=== PATIENT | female | born 1985 | race Caucasian/White ===

== ENCOUNTER 2017-05-24 11:15 | Emergency (ER) | payer BC, MEDICAID ==
[~2017-05-24 11:15] MED LIST: OXYC-360 PO; PEDI1CHW6 CHEW
--- NOTE | 2017-05-24 12:25 | PD ---
HPI Chief Complaint Here for NST and biophysical profile due to diabetes Date Seen: May 24, 2017 Time Seen: 12:15 Travel History International Travel<30 Days: No Contact w/Intl Traveler<30Days: No Known Affected Area: No History of Present Illness HPI Patient is 32-year-old white female at [address] greer for care. She has a history gestational diabetes and is getting routine NST biophysical profile. She is here for those procedures today. She has no other complaints or problems. heart rate tracing is reactive and there are no contractions. Weeks Gestation: 36 Para: 1 : 2 History Obstetric History Obstetric History Gestational diabetes with this and obesity Social History Alcohol Use: No Tobacco Use: No Substance Abuse: No Allergies-Medications (Allergen,Severity, Reaction): Coded Allergies: neomycin (Unverified Allergy, Severe, RASH, 04/26/17) Home Meds Reported Medications Oxycodone/Acetaminophen (Percocet) 5 Mg/325 Mg Tab, 1 - 2 TAB PO Q4HPRN, #50 FOR PAIN 12/14/11 Multivitamins/Folic Ac/Vit C (Flintstones Multivitamin) 1 Tab Chw, 1 TAB CHEW DAILY 11/26/11 Review of Systems General / Constitutional: No: Fever, Weight Gain, Chills, Other Eyes: No: Diploplia, Blurred Vision, Visual changes, Pain, Photophobia HENT: No: Headaches, Vertigo, Lightheadedness Cardiovascular: No: Irregular Rhythm, Chest Pain or Discomfort, Palpitations, Tachycardia, Syncope, Varicosities, Edema, Cyanosis Respiratory: No: Cough, Short of Breath, Other Gastrointestinal: No: Nausea, Vomiting, Diarrhea Genitourinary: No: Decreased Urinary Output, Oliguria Musculoskeletal: No: Limited ROM, Weakness, Cramping, Edema, Pain Skin: No Rash, No Itching, No Dryness, No Lumps, No Change in Pigmentation, No Change in Nails, No Alopecia, No Lesions Neurologic: No: Weakness, Dizziness, Syncope, Focal Abnormalities, Coordination Problem, Headache, Slurred Speech, Seizures Psychiatric: No: Depression, Suicidal Ideations, Homicidal Ideation Endocrine: No: Heat Intolerance, Cold Intolerance, Polydipsia, Polyuria, Other Physical Exam Narrative GENERAL: Well-nourished, obese patient. SKIN: Warm and dry. HEAD: Normocephalic and atraumatic. EYES: No scleral icterus. No injection or drainage. ENT: No nasal drainage noted. Mucous membranes pink. Airway patent. NECK: Supple, trachea midline. No JVD. CARDIOVASCULAR: Regular rate and rhythm without murmurs, gallops, or rubs. RESPIRATORY: Breath sounds equal bilaterally. No accessory muscle use. BREASTS: Bilateral exam showed no masses , no retractions, no nipple discharge. ABDOMEN/GI: Abdomen soft, non-tender, bowel sounds present, no rebound, no guarding Gravid to [36-] weeks size Fundal Height: [-38] Membranes: [intact ] Uterine Contractions: [none-] FHT's: Category: [1-] Baseline: [-133] Reactive: [yes-] Variability: [-mod] Decels: [-none] EXTREMITIES: No cyanosis or edema. BACK: Nontender without obvious deformity. No CVA tenderness. NEUROLOGICAL: Awake and alert. Motor and sensory grossly within normal limits. Five out of 5 muscle strength in all muscle groups. Normal speech. Data Data Orders Orders Us Ob Bpp W Repeat (05/24/17 ) Labs NST is reactive airway OB ED her ultrasound was done by OB diagnostics was 8 of 8 on a biophysical with BRAEDEN of 21. Head in the NST today today gives 10 of 10 for her biophysical profile total score MDM Interpretation(s) Patient is 32-year-old white female at [address] greer for care was sent here basically for NST biophysical. Biophysical score total is 10 of 10 reactive NST here on OB ED. Mother has no problems her baby is active. She will follow-up Dr. greer in the usual fashion and continue routine biophysical's as directed Plan Discharged today to follow-up with Dr. greer as above Diagnosis Diagnosis: Primary Impression: Gestational diabetes mellitus Disposition: DISCHARGE HOME Condition: Stable Rashi Huitron II, MD May 24, 2017 12:25
== END 2017-05-24 12:37 | disposition home or self-care (01) ==
LOC: HOBED 11:15
DX: O24.419 Gestational diabetes mellitus in pregnancy, unspecified control (principal); Z3A.36 36 weeks gestation of pregnancy
CPT/HCPCS: 59025; 76816; 76818

== ENCOUNTER 2017-06-09 05:17 | Inpatient (IN) | payer MEDICAID ==
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
[~2017-06-09] VITALS: Ht 175.3 cm; Wt 150.5 kg
[2017-06-09] VITALS (31 sets, daily range): BP systolic 96–167; BP diastolic 50–94; PULSE 61–91; RESP 14–22; TEMP 97.7–98.4; O2SAT 94–100
[2017-06-09] MEDS ORDERED: CITRIC ACID-SODIUM CITRATE LIQ 30 ML UDC PO SCH (06:15)
[2017-06-09] MEDS ORDERED: ceFAZolin 2 GM PREMIX 50 ML IV SCH (06:15)
[2017-06-09] MEDS ORDERED: LACTATED RINGER'S 1000 ML IV SCH (06:15)
[2017-06-09] MEDS ORDERED: LACTATED RINGER'S 1000 ML IV ONE (06:15)
[2017-06-09 06:44] LABS: BASOPHIL % 0.3 % (0.0-2.0); EOSINOPHIL # 0.2 TH/MM3 (0-0.4); EOSINOPHIL % 2.4 % (0.0-4.0); HEMATOCRIT 39.1 % (35.0-46.0); HEMO FLAGS DIFF FINAL; LYMPH % 12.1 % (9.0-44.0); MEAN CELL VOLUME 83.4 FL (80.0-100.0); MEAN CORPUSCULAR HEMOGLOBIN 28.1 PG (27.0-34.0); MEAN CORPUSCULAR HGB CONC 33.7 % (32.0-36.0); NEUT % 80.2 % (16.0-70.0); PLATELET COUNT 145 TH/MM3 (150-450); RED BLOOD COUNT 4.69 MIL/MM3 (4.00-5.30); RED CELL DISTRIBUTION WIDTH 14.8 % (11.6-17.2); WHITE BLOOD COUNT 8.7 TH/MM3 (4.0-11.0)
[2017-06-09 06:54] LABS: BACTERIA, URINE FEW /hpf; BLOOD, URINE NEG (NEG); COMMENT (UR) CULT NOT INDICATED; CULTURE IF INDICATED CULT NOT INDICATED; GLUCOSE,URINE NEG (NEG); HYALINE CAST, URINE 1 /lpf (RARE); KETONE, URINE NEG (NEG); MUCUS URINE FEW /lpf (OCC); NITRITE,URINE NEG (NEG); SQUAMOUS EPITHELIAL CELL URINE 12 /hpf (0-5); URINE COLOR YELLOW (YELLW/STRAW)
[2017-06-09] MEDS ORDERED: SODIUM CHLORIDE 0.9% FLUSH 5 ML FLUSH IV PRN (08:45)
[2017-06-09] MEDS ORDERED: OXYTOCIN 30 UNITS-500ML PREMIX 500 ML IV ONE (08:45)
[2017-06-09] MEDS ORDERED: ACETAMINOPHEN 1000 MG/100 ML VIAL IV SCH (08:45)
[2017-06-09] MEDS ORDERED: MEASLES, MUMPS, RUBELLA VACCINE 0.5 ML VIAL SQ ONE (08:45)
[2017-06-09] MEDS ORDERED: SODIUM CHLORIDE 0.9% FLUSH 5 ML FLUSH IV SCH (09:00)
[2017-06-09] MEDS ORDERED: ePHEDrine/NS 25 MG/5 ML SYR ONE (09:07)
[2017-06-09] MEDS ORDERED: SIMETHICONE 80 MG CHEWABLE TAB PO PRN (09:15)
[2017-06-09] MEDS ORDERED: KETOROLAC TROMETHAMINE 60 MG/2 ML (IM) VIAL IM PRN ×2 (10:00→16:00)
[2017-06-09] MEDS ORDERED: ONDANSETRON HCL 4 MG/2 ML VIAL IVP PRN (10:00)
[2017-06-09] MEDS ORDERED: PROMETHAZINE INJ 25 MG/ML VIAL IM PRN (12:15)
[2017-06-09] MEDS ORDERED: EPIDURAL-DIPHENHYDRAMINE HCL 50 MG CAP PO PRN (12:30)
[2017-06-09] MEDS ORDERED: EPIDURAL-NALOXONE HCL 0.4 MG/ML AMP IV PUSH PRN (12:30)
[2017-06-09] MEDS ORDERED: EPIDURAL-NO SYSTEMIC NARCOTICS PRN (12:30)
[2017-06-09] MEDS ORDERED: EPIDURAL-DO NOT ADMINISTER ANTICOAGULANTS PRN (12:30)
[2017-06-09] MEDS ORDERED: EPIDURAL-DIPHENHYDRAMINE HCL 50 MG/ML VIAL IV PUSH PRN (12:30)
[2017-06-09] MEDS ORDERED: LACTATED RINGER'S 1000 ML INJ 1,000 ML IV SCH (13:04)
[2017-06-09] MEDS ORDERED: OXYTOCIN 30 UNITS-500ML PREMIX 500 ML IV PRN (18:15)
[2017-06-09] MEDS: ACETAMINOPHEN 1000 MG/100 ML VIAL IV SCH (18:18)
[2017-06-09] MEDS ORDERED: ZOLPIDEM TARTRATE 5 MG TAB PO PRN (21:00)
[2017-06-10 01:34] VITALS: O2SAT 99
[2017-06-10] MEDS: ACETAMINOPHEN 1000 MG/100 ML VIAL IV SCH (02:44)
[2017-06-10 04:10] VITALS: BP 123/80; PULSE 82; RESP 18; TEMP 98.5; O2SAT 100
[2017-06-10 05:52] LABS: AUTOMATED NEUTROPHIL # 5.4 TH/MM3 (1.8-7.7); BASOPHIL % 0.2 % (0.0-2.0); EOSINOPHIL # 0.1 TH/MM3 (0-0.4); EOSINOPHIL % 1.2 % (0.0-4.0); HEMATOCRIT 32.5 % (35.0-46.0); HEMO FLAGS DIFF FINAL; LYMPH % 14.6 % (9.0-44.0); MEAN CELL VOLUME 84.7 FL (80.0-100.0); MEAN CORPUSCULAR HGB CONC 33.1 % (32.0-36.0); MONO % 6.9 % (0.0-8.0); NEUT % 77.1 % (16.0-70.0); PLATELET COUNT 119 TH/MM3 (150-450); RED BLOOD COUNT 3.83 MIL/MM3 (4.00-5.30)
[2017-06-10 06:18] LABS: BICARBONATE 24.3 MEQ/L (21.0-32.0); POTASSIUM 3.7 MEQ/L (3.5-5.1)
[2017-06-10] MEDS: oxyCODONE/ACETAMINOPHEN 5 MG/325 MG TAB PO PRN ×4 (06:21→22:44)
[2017-06-10] MEDS: IBUPROFEN 600 MG TAB PO PRN ×4 (06:21→23:23)
[2017-06-10 08:10] VITALS: BP 130/88; PULSE 82; RESP 18; TEMP 97.9
--- NOTE | 2017-06-10 09:57 | MP ---
cc: [facility] DATE OF SURGERY 06/09/2017 ADMISSION DIAGNOSIS 1. Term 2. Previous 3. Maternal obesity 4. Gestational diabetes 5. Macrosomia POSTOPERATIVE DIAGNOSIS 1. Term 2. Previous 3. Maternal obesity 4. Gestational diabetes 5. Macrosomia 6. Delivered PROCEDURE Repeat low transverse section. ANESTHESIA Spinal SURGEON Corie Vega MD MANAGER USER EXPERIENCE Sandy Tyresepatrice ESTIMATED BLOOD LOSS About 500 cc FLUIDS 1.5 liters Crystalloid OBJECTIVE FINDINGS Following induction of adequate spinal anesthesia, the clear elastic drape was used to elevate the panniculus. She was prepped and draped in the usual sterile fashion. The abdomen was opened through a Pfannenstiel incision using knife to cut down through skin to the fascia. The fascia opened transversely, stripped from the muscles. Rectus muscle split in the midline and the peritoneum opened sharply without incident. The bladder flap was taken down sharply, retracted with a Sarah blade. The lower uterine segment was incised transversely with a knife, extended with blunt dissection, and membranes ruptured revealing clear fluid. The baby was in the LOT position. The vacuum extractor applied to the occiput and used to gently lift the head through the uterine abdominal wound. The mouth was suctioned, the cord clamped and cut and the baby passed to the awaiting team. A viable vigorous male, 's 2,8 and 8. Cord blood collected for typing, placenta manually removed and the uterine cavity cleaned with laps. The uterus was exteriorized and closed in two layers with running suture, first with a running locking stitch of 0-Vicryl and second with a running imbricating stitch of 0-Vicryl. Posterior inspection of the uterus, tubes and ovaries were normal. The uterus placed in the cavity. Irrigation was performed. No bleeding was evident. The bladder flap was closed with a running stitch of 3-0 Vicryl. All laps and retractors were removed. Counts were correct. The anterior peritoneum closed with a running stitch of 2-0 Vicryl. The fascia closed with running locking running stitch of #0 PDS corner to midline and tied, subcu with running 3-0 Vicryl and skin with running subcuticular 3-0 Monocryl. Dermabond applied. Dry gauze applied to shield the skin from moisture. All counts were correct and the patient was awakened and taken to the recovery room in good condition. MD ANGELINA Guerrero/CAIT /8:51 PM /9:37 AM
[2017-06-10] MEDS: DOCUSATE SODIUM 50 MG/SENNA 8.6 MG TAB PO PRN ×2 (11:57→23:23)
[2017-06-10 20:10] VITALS: BP 122/71; PULSE 90; RESP 18; TEMP 98.3
[2017-06-11] MEDS: oxyCODONE/ACETAMINOPHEN 5 MG/325 MG TAB PO PRN ×5 (02:53→21:50)
[2017-06-11 03:10] VITALS: BP 137/83; PULSE 79; RESP 18; TEMP 98.6
[2017-06-11] MEDS: IBUPROFEN 600 MG TAB PO PRN ×3 (07:13→19:14)
[2017-06-11 08:00] VITALS: BP 139/75; PULSE 82; RESP 18; TEMP 98.9
[2017-06-11] MEDS ORDERED: DIPHTH/TETANUS/ACEL PERTUSSIS (BOOSTER) 0.5 ML VIAL/PFS IM ONE (09:00)
[2017-06-11 12:00] VITALS: BP 142/83; PULSE 91; RESP 17; TEMP 98.4
[2017-06-11] MEDS: TRIAMTERENE/HCTZ 75 MG/50 MG TAB PO SCH (12:51)
[2017-06-11] MEDS: DOCUSATE SODIUM 50 MG/SENNA 8.6 MG TAB PO PRN (12:51)
[2017-06-11 14:38] VITALS: O2SAT 96
[2017-06-11 20:00] VITALS: BP 127/83; PULSE 80; RESP 18; TEMP 97.7
[2017-06-11 22:55] VITALS: O2SAT 97
[2017-06-12] MEDS: oxyCODONE/ACETAMINOPHEN 5 MG/325 MG TAB PO PRN ×3 (02:17→12:00)
[2017-06-12] MEDS: IBUPROFEN 600 MG TAB PO PRN ×2 (02:17→08:16)
[2017-06-12 04:00] VITALS: BP 118/71; PULSE 74; RESP 18; TEMP 98.4
[2017-06-12] MEDS: TRIAMTERENE/HCTZ 75 MG/50 MG TAB PO SCH (08:17)
[2017-06-12] MEDS ORDERED: OXYC1TAB63 PO (10:17)
[2017-06-12] MEDS ORDERED: MAXZ PO (10:17)
--- NOTE | 2017-06-12 10:17 | HHI.DCPOC ---
Discharge Care Plan Report Symptoms to Your Doctor -Temperature above 100.5 degrees -Redness, of incision or excessive or foul smelling drainage -Unusual pain or calf pain -Increased vaginal bleeding -Painful or difficulty urinating -Feelings of extreme sadness or anxiety after 2 weeks Goals to Promote Your Health * To prevent worsening of your condition and complications * To maintain your health at the optimal level Directions to Meet Your Goals Take your medications as prescribed Follow your dietary instruction Follow activity as directed Ensure plenty of rest for recovery Drink fluids for hydration Keep your appointments as scheduled Take your immunizations and boosters as scheduled If your symptoms worsen call your PCP, if no PCP go to Urgent Care Center or Emergency Room Smoking is Dangerous to Your Health. Avoid second hand smoke Call the 24-hour crisis hotline for domestic abuse at Suman Vega MD Jun 12, 2017 10:17
--- NOTE | 2017-06-13 09:39 | MD ---
cc: CORIE CHAVEZ ADMISSION DATE: 06/09/2017 DISCHARGE DATE: 06/12/2017 ADMISSION DIAGNOSIS 1. Term . 2. Previous . 3. Gestational diabetes. 4. Maternal obesity. 5. macrosomia. DISCHARGE DIAGNOSIS 1. Term . 2. Previous . 3. Gestational diabetes. 4. Maternal obesity. 5. macrosomia. 6. Delivered. HISTORY OF PRESENT ILLNESS The patient is a 32-year-old single white female, para 1-0-0-1 with EDC of 06/16/2017 by early ultrasound. Her course was benign. She had dietary control for gestational diabetes. Her labs include Rh positive, nonreactive, rubella immune, rubeola immune, MONTES negative, Pap negative, glucose screening 3-hour was elevated. Strep culture was negative. HOSPITAL COURSE Admitted for repeat section on 06/09/2017, had delivery of a viable vigorous male, Apgars were 2, 8 and 8. weight 9 pounds 12 ounces. The patient remained stable and she was , did well. The patient was discharged home in excellent condition on 06/12/2017. Her pre and postop labs were normal. She was advised NPV, light activity, no driving, return to see me in 1 week. She was carefully instructed in wound instruction care. She will take prescription for Percocet 5, one to two p.o. q.4 hours, p.r.n.,#60 and Maxzide 75 mg p.o. q. a.m., #7. MD ANGELINA Guerrero/HENRRY /10:20 AM /9:36 AM
== END 2017-06-12 12:50 | disposition home or self-care (01) | DRG 766 ==
LOC: H2EB 05:17 → H1EA 10:47
PROVIDERS: ADMIT Obstetrics & Gynecology; ATTEND Obstetrics & Gynecology
PROC: 10D00Z1 Extraction of Products of Conception, Low, Open Approach (ICD-10-PCS; principal; 2017-06-09)
DX: O24.429 Gestational diabetes mellitus in childbirth, unspecified control (principal); E66.01 Morbid (severe) obesity due to excess calories; O13.4 Gestational [pregnancy-induced] hypertension without significant proteinuria, complicating childbirth; O34.211 Maternal care for low transverse scar from previous cesarean delivery; Z37.0 Single live birth; O36.63X0 Maternal care for excessive fetal growth, third trimester, not applicable or unspecified; Z3A.00 Weeks of gestation of pregnancy not specified; O99.214 Obesity complicating childbirth
CPT/HCPCS: 59025; 80048; 81001; 85025; 86850; 86900; 86901; 94762; J0131; J0690; J2550; J2590; J7120